=== PATIENT | female | born 1995 | race Caucasian/White ===

== ENCOUNTER 2023-06-17 18:22 | Emergency (ER) | payer BC ==
[2023-06-17] MEDS ORDERED: MAG HYDROX/AL HYDROX/SIMETH 30 ML, HYOSCYAMINE ELIXIR 10 ML, LIDOCAINE 2% GLYDO JELLY 1... PO STA ×3 (19:23)
--- NOTE | 2023-06-17 20:00 | XR ---
EXAMINATION TYPE: XR soft tissue neck DATE OF EXAM: 06/17/2023 7:39 PM INDICATION: Patient age:Female; 27 years old; Reason for study: odynophagia; [facility]. COMPARISON: None TECHNIQUE: The soft tissues of the neck were imaged in frontal and lateral views. FINDINGS: No radiopaque foreign body. The prevertebral soft tissues are unremarkable. There is no renetta dence of mass effect or tracheal deviation. No acute osseous abnormality demonstrated. No evidence of subglottic narrowing. IMPRESSION: No significant abnormality identified within the soft tissues of the neck. No evidence for radiopaque foreign body.
--- NOTE | 2023-06-17 20:50 | ED ---
General Adult HPI - General Chief complaint: ENT Stated complaint: object stuck in throat Time Seen by Provider: 06/17/23 18:34 Source: patient Mode of arrival: ambulatory Limitations: no limitations - History of Present Illness Initial comments: This patient is 27-year-old woman who presents with complaint of throat pain with swallowing is been going on since Saturday. The patient was eating some chicken at that time and thought that she had swallowed a bone. The patient states no pain unless she is in the process swallowing. She is able to drink fluids and tolerates secretions. Onset/Timin -: days(s) Location: neck Radiation: non-radiation Quality: sharp Consistency: intermittent Improves with: none Worsens with: none Associated Symptoms: denies other symptoms Treatments Prior to Arrival: none - Related Data Previous Rx's Medication Instructions Recorded Lidocaine Viscous [Xylocaine 5 ml PO Q3HR PRN #100 ml 06/17/23 Viscous 2%] Allergies Allergy/AdvReac Type Severity Reaction Status Date / Time No Known Allergies Allergy Verified 06/17/23 18:26 Review of Systems ROS Statement: Those systems with pertinent positive or pertinent negative responses have been documented in the HPI. ROS Other: All systems not noted in ROS Statement are negative. Constitutional: Denies: fever, chills ENT: Reports: throat pain Respiratory: Denies: cough, dyspnea Cardiovascular: Denies: chest pain, palpitations, syncope Gastrointestinal: Denies: abdominal pain, vomiting Neurological: Denies: headache Past Medical History Past Medical History: No Reported History History of Any Multi-Drug Resistant Organisms: None Reported Past Surgical History: No Surgical Hx Reported Past Psychological History: No Psychological Hx Reported Smoking Status: Never smoker Past Alcohol Use History: None Reported Past Drug Use History: None Reported General Exam Limitations: no limitations General appearance: alert, in no apparent distress Head exam: Present: atraumatic, normocephalic Eye exam: Present: normal appearance. Absent: scleral icterus ENT exam: Present: normal oropharynx Neck exam: Present: normal inspection, full ROM. Absent: tenderness, meningismus, lymphadenopathy Respiratory exam: Present: normal lung sounds bilaterally. Absent: respiratory distress, wheezes, rales, rhonchi, stridor Cardiovascular Exam: Present: regular rate, normal rhythm, normal heart sounds. Absent: systolic murmur, diastolic murmur, rubs, gallop Neurological exam: Present: alert Skin exam: Present: warm, dry, intact, normal color. Absent: rash Course Vital Signs 06/17/23 06/17/23 06/17/23 18:23 19:17 20:56 Temperature 98.2 F 98.6 F Pulse Rate 88 78 76 Respiratory 18 16 18 Rate Blood Pressure 149/91 136/93 137/90 O2 Sat by Pulse 100 100 99 Oximetry Medical Decision Making - Medical Decision Making The patient had soft tissue neck x-ray which is interpreted as being negative for narrowing of the airway and radiopaque foreign body. Was pt. sent in by a medical professional or institution (, PAUL, BANQUET DIRECTOR, urgent care, hospital, or correction...) When possible be specific @ -[No] Did you speak to anyone other than the patient for history (EMS, parent, family, police, friend...)? What history was obtained from this source @ -[No] Did you review nursing and triage notes (agree or disagree)? Why? @ -[I reviewed and agree with nursing and triage notes] Were old charts reviewed (outside hosp., previous admission, EMS record, old EKG, old radiological studies, urgent care reports/EKG's, correction records)? Report findings @ -[No old charts were reviewed] Differential Diagnosis (chest pain, altered mental status, abdominal pain women, abdominal pain men, vaginal bleeding, weakness, fever, dyspnea, syncope, headache, dizziness, GI bleed, back pain, seizure, CVA, palpatations, mental health, musculoskeletal)? @ -The patient's differential diagnosis includes pharyngitis, esophagitis, esophageal foreign body, amongst other conditions EKG interpreted by me (3pts min.). @ -[ X-rays interpreted by me (1pt min.). @ -[As above CT interpreted by me (1pt min.). @ -[None done] U/S interpreted by me (1pt. min.). @ -[None done] What testing was considered but not performed or refused? (CT, X-rays, U/S, labs)? Why? @ -[None] What meds were considered but not given or refused? Why? @ -[None] Did you discuss the management of the patient with other professionals (jose luis ramirez i.e. , PAUL, BANQUET DIRECTOR, lab, RT, psych nurse, social work instructor, sheeter operator, teacher, transportation security officer, counter caser)? Give summary @ -[No] Was smoking cessation discussed for >3mins.? @ -[No] Was critical care preformed (if so, how long)? @ -[No] Were there social determinants of health that impacted care today? How? (Homelessness, low income, unemployed, alcoholism, drug addiction, transportation, low edu. Level, literacy, decrease access to med. care, [facility], rehab)? @ -[No] Was there de-escalation of care discussed even if they declined (Discuss DNR or withdrawal of care, Hospice)? DNR status @ -[No] What co-morbidities impacted this encounter? (DM, HTN, Smoking, COPD, CAD, Cancer, CVA, ARF, Chemo, Hep., AIDS, mental health diagnosis, sleep apnea, morbid obesity)? @ -[None] Was patient admitted / discharged? Hospital course, mention meds given and route, prescriptions, significant lab abnormalities, going to OR and other pertinent info. @ -[The patient had improvement following medication here. We discussed appropriate further care and follow-up as well as return parameters. Undiagnosed new problem with uncertain prognosis? @ -[No] Drug Therapy requiring intensive monitoring for toxicity (Heparin, Nitro, Insulin, Cardizem)? @ -[No] Were any procedures done? @ -[No] Diagnosis/symptom? @ -[Acute esophagitis Acute, or Chronic, or Acute on Chronic? @ -[default] Uncomplicated (without systemic symptoms) or Complicated (systemic symptoms)? @ -[ Uncomplicated Side effects of treatment? @ -[No] Exacerbation, Progression, or Severe Exacerbation? @ -[No] Poses a threat to life or bodily function? How? (Chest pain, [place], VT, pneumonia, PE, COPD, DKA, ARF, appy, cholecystitis, CVA, Diverticulitis, Homicidal, Suicidal, threat to staff... and all critical care pts) @ -[No] Disposition Clinical Impression: Esophagitis Disposition: HOME SELF-CARE Condition: Good Instructions (If sedation given, give patient instructions): Esophagitis (ED) Prescriptions: Lidocaine Viscous [Xylocaine Viscous 2%] 5 ml PO Q3HR PRN #100 ml PRN Reason: Sore Throat Is patient prescribed a controlled substance at d/c from ED?: No Referrals: Priyanka Cunningham DO [Primary Care Provider] - 1-2 days Alondra Goodman MD [STAFF PHYSICIAN] - 1-2 days
[2023-06-17 21:07] VITALS: BP 137/90; PULSE 76; RESP 18; TEMP 98.6
== END 2023-06-17 20:57 | disposition home or self-care (01) ==
LOC: EC 18:22
DX: K20.90 Esophagitis, unspecified without bleeding (principal)
CPT/HCPCS: 70360; 99283